=== PATIENT | male | born 1965 | race Hispanic/Latino ===

== ENCOUNTER 2020-12-25 10:27 | Inpatient (IN) | payer OTHER ==
[2020-12-25] MEDS ORDERED: METHYLPREDNISOLONE 125 MG INJ ONE ×2 (11:04→17:18)
[2020-12-25 11:06] LABS: Absolute Lymphocytes (CBC) 1.1 K/uL (0.7-4.9); Basophils % 0.4 % (0-1.3); Hematocrit 43.4 % (39.6-49.0); Lymphocytes % 18.5 % (15.3-44.8); MPV 6.9 fL (7.6-11.3); RBC Red Blood Cell Count 4.82 M/uL (4.33-5.43)
[2020-12-25 11:10] LABS: Protime INR 1.05
--- OUTSIDE RECORDS SUMMARY | 2020-12-25 11:32 | XMS REPORT | Continuity of Care Document ---
:1965 Author Organization [facility] t Address [address] [place] [address] Care Team Providers Name Role Phone Lab, Fam Pob I Attending Clinician Unavailable Provider, Urgent Care Attending Clinician Unavailable Doctor Unassigned, Name Attending Clinician Unavailable Problems This patient has no known problems. Allergies, Adverse Reactions, Alerts This patient has no known allergies or adverse reactions. Medications This patient has no known medications. Procedures This patient has no known procedures. Encounters Start End Encounter Admission Attending Care Care Encounter Source Date/Time Date/Time Type Type Clinicians Facility Department ID 2020-12-17 2020-12-17 Laboratory Lab, [facility] [id number] 08:56:18 09:16:18 Only Fam Pob I Health [id number] [place] [id number] [place] [phone] nal [address] 2020-12-16 2020-12-16 Urgent Provider, [facility] [id number] 09:32:45 09:52:45 Care [facility] [id number] Care [place] [id number] Profess[place] [phone] nal 044 [address] 2020-12-16 2020-12-16 Letter Doctor DIAZ [id number] 00:00:00 00:00:00 (Out) Unassigned, UGO [id number] [place] [facility] [id number] 2020-12-16 2020-12-16 Letter Doctor JOE [id number] 00:00:00 00:00:00 (Out) Unassigned, UGO [id number] [place] [facility] [id number] Results This patient has no known results.
--- NOTE | 2020-12-25 11:55 | RAD REPORT ---
EXAM DESCRIPTION: RAD - Chest Single View - 12/25/2020 11:46 am CLINICAL HISTORY: COVID +;Cough COMPARISON: No remote imaging TECHNIQUE: AP portable chest image was obtained 12/25/2020 11:46 am . FINDINGS: Lung volumes are low. Patchy airspace opacification is present in the lower right lung fie ld. Moderate airspace opacification seen in the mid and lower left lung field. Trachea is midline. He art and vasculature are normal. No measurable pleural effusion and no pneumothorax. No acute bony abn ormality seen. No acute aortic findings suspected. IMPRESSION: Bilateral COVID-19 pneumonia, mild to moderate in degree
[2020-12-25 12:01] LABS: ALT/SGPT 122 U/L (12-78); AST/SGOT 121 U/L (15-37); Albumin 3.1 g/dL (3.4-5.0); Alkaline Phosphatase 94 U/L (45-117); BUN Blood Urea Nitrogen 13 mg/dL (7-18); Bicarbonate 29 mmol/L (21-32); Bilirubin Direct 0.2 mg/dL (0-0.2); Bilirubin Total 0.6 mg/dL (0.2-1.0); Ferritin 986.3 ng/mL (26-388); Glucose Level 107 mg/dL (74-106); Potassium 3.3 mmol/L (3.5-5.1); Sodium Level 137 mmol/L (136-145); Troponin (Emerg Dept Use Only) < 0.02 ng/mL (0.0-0.045)
--- NOTE | 2020-12-25 12:22 | ER ---
Nurse's Notes [facility] Name: Jose D Bellamy Age: 55 yrs Sex: Male : 1965 Arrival Date: 12/25/2020 Time: 10:29 Bed 16 Private MD: Diagnosis: Pneumonia due to SARS-associated coronavirus;Hypoxemia Presentation: 12/25 10:43 Chief complaint: Patient states: COVID+ on 12/17/20. c/o SOB, fatigue, sweaty, sv productive bloody sputum (small amount), diarrhea, decreased appetite, generalized weakness, upper mid back pain since 12/17/20. Coronavirus screen: Client denies travel out of the [place] in the last 14 days. Client presents with at least one sign or symptom that may indicate coronavirus-19. Standard/surgical mask placed on the client. Provider contacted for isolation considerations. Client reports previous positive COVID test result. Ebola Screen: No symptoms or risks identified at this time. Risk Assessment: Do you want to hurt yourself or someone else? Patient reports no desire to harm self or others. Onset of symptoms was December 17, 2020. 10:43 Method Of Arrival: Ambulatory sv 10:43 Acuity: EH 3 sv 11:33 Initial Sepsis Screen: Does the patient meet any 2 criteria? RR > 20 per min. Yes Does tr6 the patient have a suspected source of infection? Yes: Other: covid 19. Triage Assessment: 10:45 General: Appears in no apparent distress. uncomfortable, Behavior is calm, cooperative, sv appropriate for age. Neuro: Level of Consciousness is awake, alert, obeys commands, Oriented to person, place, time, situation, Gait is steady. Respiratory: Respiratory effort is even, Respiratory pattern is tachypnea. 11:33 Pain: Complains of pain in head. tr6 Historical: - Allergies: 10:45 PENICILLINS; sv - PMHx: 10:45 None; sv - PSHx: 10:45 None; sv - Immunization history:: Client reports having NOT received the Covid vaccine. - Social history:: Smoking status: Patient denies any tobacco usage or history of. - Family history:: not pertinent. - Hospitalizations: : No recent hospitalization is reported. Screenin:32 Abuse screen: Denies threats or abuse. Denies injuries from another. Nutritional tr6 screening: No deficits noted. Tuberculosis screening: No symptoms or risk factors identified. Fall Risk None identified. Assessment: 11:08 Respiratory: Respiratory effort is even, unlabored, pt O2 sat 86% on RA. Pt placed on tr6 4L NC. MD Sanchez informed. 11:52 Reassessment: pt increased to 6L NC and placed in prone position. MD Sanchez informed. tr6 General: Appears uncomfortable, Behavior is calm, cooperative, appropriate for age, Reports chills for fever for feeling ill for fatigue for. Pain: Denies pain. Neuro: No deficits noted. Cardiovascular: No deficits noted. Rhythm is regular. Respiratory: Breath sounds are clear Breath sounds are diminished the patient has mild shortness of breath. GI: No deficits noted. : No deficits noted. EENT: No deficits noted. Derm: No deficits noted. Musculoskeletal: No deficits noted. 12:35 Reassessment: MD Hillman at bedside to admit pt. tr6 Vital Signs: 10:43 BP 107 / 85; Pulse 95; Resp 26; Pulse Ox 95% ; Weight 113.4 kg; Height 5 ft. 10 in. sv (177.80 cm); Pain 5/10; 11:18 Pulse Ox 98% on 4 lpm NC; tr6 11:32 Temp 99.7(O); tr6 11:38 Pulse Ox 94% on 4 lpm NC; tr6 12:00 BP 118 / 86; tr6 12:41 Temp 98.9(O); jd3 13:00 BP 114 / 78; Pulse Ox 99% on NC; tr6 10:43 Body Mass Index 35.87 (113.40 kg, 177.80 cm) sv 11:38 pt increased to 6 L NC tr6 ED Course: 10:29 Patient arrived in ED. rg4 10:31 James Yoo, RN is Primary Nurse. jd3 10:32 Markus Sanchez MD is Attending Physician. rn 10:36 Oralia Morton, JOHN is Primary Nurse. tr6 10:45 Triage completed. sv 10:45 Arm band placed on. sv 11:32 Patient has correct armband on for positive identification. Placed in gown. Bed in low tr6 position. Side rails up X2. column precaster on. Pulse ox on. NIBP on. Door closed. Noise minimized. Visitors limited. Lights dimmed. Moved to private room. Warm blanket given. Diet: Patient is NPO. 11:32 No provider procedures requiring assistance completed. Inserted saline lock: 20 gauge tr6 in right antecubital area, using aseptic technique. 11:46 CXR XRAY In Process Unspecified. EDMS 12:20 Usman iHllman DO is Hospitalizing Provider. rn 12:25 CT Chest For PE Angio In Process Unspecified. EDMS Administered Medications: 11:08 Drug: SOLU-Medrol (methylPrednisoLONE) 125 mg Route: IVP; Site: right antecubital; tr6 Outcome: 12:21 Decision to Hospitalize by Provider. rn 13:16 Admitted to tr6 18:05 Patient left the ED. tr6 Signatures: Dispatcher [employer] EDCordelia Jeffrey, RN RN Markus Smith MD MD rn Garcia, Rubi rg4 James Yoo RN RN jOralia Tinajero RN RN tr6
--- NOTE | 2020-12-25 12:22 | EDPHYS ---
Physician Documentation [facility] Name: Jose D Bellamy Age: 55 yrs Sex: Male : 1965 Arrival Date: 12/25/2020 Time: 10:29 Bed 16 Private MD: ED Physician Markus Sanchez HPI: 12/25 11:59 This 55 yrs old Male presents to ER via Ambulatory with complaints of Covid, rn sob. 11:59 The patient has shortness of breath at rest, with light activity. Onset: The rn symptoms/episode began/occurred 8 day(s) ago. Duration: The symptoms are continuous. The patient's shortness of breath is aggravated by coughing, exertion, light activity, supine position, talking, walking. Associated signs and symptoms: Pertinent positives: productive cough, fever, Pertinent negatives: loss of consciousness, vomiting. Severity of symptoms: At their worst the symptoms were moderate in the emergency department the symptoms are unchanged. The patient has not experienced similar symptoms in the past. The patient has been recently seen by a physician:. Reports 1 week of worsening sob and COVID +, no chronic lung issues, still having fever/chills/fatigue. . Historical: - Allergies: 10:45 PENICILLINS; sv - PMHx: 10:45 None; sv - PSHx: 10:45 None; sv - Immunization history:: Client reports having NOT received the Covid vaccine. - Social history:: Smoking status: Patient denies any tobacco usage or history of. - Family history:: not pertinent. - Hospitalizations: : No recent hospitalization is reported. ROS: 11:59 Constitutional: + fever and chills Eyes: Negative for injury, pain, redness, and turn out worker, ENT: Negative for injury, pain, and discharge, Neck: Negative for injury, pain, and swelling, Cardiovascular: Negative for chest pain, palpitations, and edema, Respiratory: + sob and cough Abdomen/GI: Negative for abdominal pain, nausea, vomiting, diarrhea, and constipation, Back: Negative for injury and pain, MS/Extremity: Negative for injury and deformity, Skin: Negative for injury, rash, and discoloration, Neuro: Negative for numbness, tingling, and seizure. Exam: 11:59 Constitutional: This is a well developed, well nourished patient who is awake, alert, rn mild tachypnea Head/Face: Normocephalic, atraumatic. Eyes: Pupils equal round and reactive to light, extra-ocular motions intact. Lids and lashes normal. Conjunctiva and sclera are non-icteric and not injected. Cornea within normal limits. Periorbital areas with no swelling, redness, or edema. ENT: MMM, no stridor Cardiovascular: Tachycardic, regular Respiratory: + mild tachypnea, no retractions Abdomen/GI: Soft, non-tender Skin: Warm, dry MS/ Extremity: Pulses equal, no cyanosis. Neurovascular intact. Full, normal range of motion. Equal circumference. Neuro: Awake and alert, GCS 15, oriented to person, place, time, and situation. Cranial nerves II-XII grossly intact. Motor strength 5/5 in all extremities. Sensory grossly intact. Cerebellar exam normal. Normal gait. Vital Signs: 10:43 BP 107 / 85; Pulse 95; Resp 26; Pulse Ox 95% ; Weight 113.4 kg; Height 5 ft. 10 in. sv (177.80 cm); Pain 5/10; 11:18 Pulse Ox 98% on 4 lpm NC; tr6 11:32 Temp 99.7(O); tr6 11:38 Pulse Ox 94% on 4 lpm NC; tr6 12:00 BP 118 / 86; tr6 12:41 Temp 98.9(O); jd3 13:00 BP 114 / 78; Pulse Ox 99% on NC; tr6 10:43 Body Mass Index 35.87 (113.40 kg, 177.80 cm) sv 11:38 pt increased to 6 L NC tr6 MDM: 10:32 Patient medically screened. rn 11:22 ED course: O2 sat dropped to 86%. rn 12:19 Differential diagnosis: Bronchitis pneumonia, Pneumothorax pulmonary edema, Pulmonary rn Embolism reactive airway disease, Sepsis. Antibiotic administration: Not indicated, the patient has a suspected viral illness. Data reviewed: vital signs, nurses notes, lab test result(s), EKG, radiologic studies, plain films, and as a result, I will admit patient. Counseling: I had a detailed discussion with the patient and/or guardian regarding: the historical points, exam findings, and any diagnostic results supporting the discharge/admit diagnosis, lab results, radiology results, the need for further work-up and treatment in the hospital. Response to treatment: the patient's symptoms have mildly improved after treatment, and as a result, I will admit patient. Admission orders: after a detailed discussion of the patient's condition and case, the admit orders are written by me. ED course: Pt with oxygen requirement, moderate COVID pneumonia, will admit for further care to Dr. Hillman. . 12/25 10:38 Order name: BMP rn 12/25 10:38 Order name: Blood Culture Adult (2) rn 12/25 10:38 Order name: C-Reactive Protein rn 12/25 10:38 Order name: CBC with Diff rn 12/25 10:38 Order name: D-Dimer rn 12/25 10:38 Order name: Ferritin; Complete Time: 12:28 12/25 10:38 Order name: LFT's; Complete Time: 12:28 12/25 10:38 Order name: Lactate; Complete Time: 11:58 12/25 10:38 Order name: PT-INR; Complete Time: 11:58 12/25 10:38 Order name: Procalcitonin; Complete Time: 11:58 rn 12/25 10:38 Order name: Ptt, Activated; Complete Time: 11:58 rn 12/25 10:38 Order name: Troponin (emerg Dept Use Only); Complete Time: 12:28 12/25 10:39 Order name: Basic Metabolic Panel; Complete Time: 12:28 EDTN 12/25 10:39 Order name: Blood Culture EDTN 12/25 10:38 Order name: CXR XRAY; Complete Time: 11:58 rn 12/25 10:38 Order name: EKG; Complete Time: 10:40 rn 12/25 10:38 Order name: Cardiac monitoring; Complete Time: 11:25 rn 12/25 10:38 Order name: Droplet/Contact Precautions; Complete Time: 11: rn 12/25 10:38 Order name: EKG - Nurse/Tech; Complete Time: 11: rn 12/25 10:38 Order name: IV Start; Complete Time: : rn 12/25 10:38 Order name: Labs collected and sent; Complete Time: : rn 12/25 10:38 Order name: O2 Per Protocol; Complete Time: : rn 12/25 10:38 Order name: O2 Sat Monitoring; Complete Time: 11:08 rn 12/25 10:39 Order name: C-Reactive Protein; Complete Time: 12:28 EDMS 12/25 10:39 Order name: CBC with Automated Diff; Complete Time: 11:58 EDMS 12/25 10:40 Order name: D-Dimer; Complete Time: 11:58 EDMS 12/25 11:22 Order name: CT Chest For PE Angio; Complete Time: 13:10 rn 12/25 13:31 Order name: Diet Regular; Complete Time: 13:32 tr6 Administered Medications: 11:08 Drug: SOLU-Medrol (methylPrednisoLONE) 125 mg Route: IVP; Site: right antecubital; tr6 Disposition Summary: 12/25/20 12:21 Hospitalization Ordered Hospitalization Status: Observation rn Provider: Usman Hillman rn Condition: Stable rn Problem: new rn Symptoms: have improved rn Bed/Room Type: Standard rn Location: Telemetry/MedSurg (Inpatient)(12/25/20 16:32) Room Assignment: [facility](12/25/20 16:32) Diagnosis - Pneumonia due to SARS-associated coronavirus rn - Hypoxemia rn Forms: - Medication Reconciliation Form rn - SBAR form rn Signatures: Dispatcher [employer] EDCordelia Jeffrey RN RN Markus Smith MD MD rn Smirch, Shelby, RN RN ss Ramnanan, Tiffany RN RN tr6 Corrections: (The following items were deleted from the chart) 15:38 12:21 Telemetry/MedSurg (observation) rn ss 15:38 12:21 rn 16:32 15:38 [facility] [[email or web address]] ER HOLD ss ss 16:32 15:38 ERHOLD- ss ss
--- NOTE | 2020-12-25 12:49 | RAD REPORT ---
EXAM DESCRIPTION: CT - Chest For Pe Angio - 12/25/2020 12:24 pm CLINICAL HISTORY: DYSPNEA , COVID positive COMPARISON: Chest Single View dated 12/25/2020 TECHNIQUE: Dynamically enhanced 3 mm thick images of the chest were obtained during administration o f approximately 150mL Isovue 370 IV contrast. Coronal and oblique MIP reconstruction images were gene rated and reviewed. Exam utilizes a protocol to evaluate the pulmonary arterial tree. All CT scans are performed using dose optimization technique as appropriate and may include automated exposure control or mA/KV adjustment according to patient size. FINDINGS: No pulmonary emboli are identified. The aorta as imaged shows no acute or suspicious finding. No pericardial thickening or effusion. Peripheral bilateral ground-glass opacification present throughout the lung liu with relative spar ing of the superior right upper lobe. Pattern is typical for a mild to moderate COVID-19 pneumonia. N o pleural effusion or pleural thickening. No mediastinal or hilar suspicious masses. No chest wall masses or abnormal axillary lymphadenopathy. IMPRESSION: No pulmonary emboli identified. Mild to moderate severity bilateral COVID-19 pneumonia.
--- NOTE | 2020-12-25 13:03 | P.HP ---
Certification for Inpatient Patient admitted to: Inpatient With expected LOS: >2 Midnights Patient will require the following post-hospital care: Other (Home oxygen at discharge) Practitioner: I am a practitioner with admitting privileges, knowledge of patient current condition, hospital course, and medical plan of care. Services: Services provided to patient in accordance with Admission requirements found in Title 42 Section 412.3 of the Code of Federal Regulations Patient History Date of Service: 12/25/20 Primary Care Provider: Dr. Garcia Reason for admission: Shortness of breath History of Present Illness: 55-year-old male presented to the emergency room with increasing shortness of breath. Patient reports shortness of breath over the past 8 days. He has been having issues with cough, congestion, arthralgias and fever. His condition has not improved. with similar issues. Patient is not vaccinated with Covid. He came to the ER for further evaluation. In the ER patient was evaluated. Patient was initially with normal room air but dropped to the 80s. Patient was placed on oxygen. White count 6. Hemoglobin 15. Platelet count 312. Sodium 137, potassium 3.3. Blood sugar 107. GFR of 86. Ferritin 986, CRP 80, AST 121, ALT 122. D-dimer at 1500. Lactic acid normal. Troponin normal. Procalcitonin negative. CT scan negative for pulmonary embolism. Mild to moderate Covid pneumonia noted. Patient admitted for further evaluation and treatment. Patient given IV Solu-Medrol in the e mergency room. Home medications list reviewed: Yes - Past Medical/Surgical History Diabetic: No Past Medical History: Patient denies medical history Past Surgical History: Patient denies surgical history Psychosocial/ Personal History: Patient - Family History Family History: Reviewed- Non-Contributory - Social History Smoking Status: Never smoker Alcohol use: Yes CD- Drugs: No Caffeine use: Yes Place of Residence: Home Review of Systems General: Fever, Weakness, Malaise, As per HPI Eyes: Unremarkable ENT: Nose Congestion, As per HPI Respiratory: Cough, Shortness of Breath, SOB with Excertion, As per HPI Cardiovascular: Unremarkable Gastrointestinal: Unremarkable Genitourinary: Unremarkable Musculoskeletal: Unremarkable Integumentary: Unremarkable Neurological: Unremarkable Lymphatics: Unremarkable Physical Examination - Studies Laboratory Data (last 24 hrs) 12/25/20 10:55: PT 12.1, INR 1.05, APTT 29.5 12/25/20 10:55: WBC 6.00, Hgb 15.1, Hct 43.4, Plt Count 312 12/25/20 10:55: Sodium 137, Potassium 3.3 L, BUN 13, Creatinine 0.91, Glucose 107 H, Total Bilirubin 0.6, AST 121 H, ALT 122 H, Alkaline Phosphatase 94 Assessment and Plan - Plan CT scan: FINDINGS: No pulmonary emboli are identified. The aorta as imaged shows no acute or suspicious finding. No pericardial thickening or effusion. Peripheral bilateral ground-glass opacification present throughout the lung liu with relative sparing of the superior right upper lobe. Pattern is typical for a mild to moderate COVID-19 pneumonia. No pleural effusion or pleural thickening. No mediastinal or hilar suspicious masses. No chest wall masses or abnormal axillary lymphadenopathy. IMPRESSION: No pulmonary emboli identified. Mild to moderate severity bilateral COVID-19 pneumonia. Physical Exam: GENERAL: The patient is a well-developed, well-nourished, in no apparent distress. Alert and oriented x3. VITAL SIGNS: Reviewed HEENT: Head is normocephalic and atraumatic. Extraocular muscles are intact. Pupils are equal, round, and reactive to light and accommodation. Nares appeared normal. Mouth is well hydrated and without lesions. Mucous membranes are moist. NECK: Supple. No carotid bruits. No lymphadenopathy or thyromegaly. LUNGS: Clear to auscultation. No crackles or wheezes are heard. HEART: Regular rate and rhythm, no appreciable gallops, rubs, murmurs or extra heart sounds ABDOMEN: Soft, nontender, and nondistended. Positive bowel sounds. No hepatosplenomegaly was noted. EXTREMITIES: Without any cyanosis, clubbing, rash, lesions or peripheral edema. NEUROLOGIC: The patient is oriented to person, place and time. Strength and sensation are grossly intact. Face is symmetric. SKIN: Normal color, turgor and temperature. No ulcerations or rashes noted. Impression: Dyspnea secondary to mild to moderate bilateral Covid pneumonia with hypoxia Elevated liver function suspect fatty liver History of alcohol use Plan: Dyspnea secondary to mild to moderate bilateral Covid pneumonia with hypoxia: Patient will be admitted for further evaluation and treatment. Patient currently on nasal cannula. Continue with nasal cannula to maintain oxygen above 93%. We will continue with IV Solu-Medrol and vitamin supplementation. Patient not a candidate for remdesivir, Actemra and Baricitinib due to elevated liver function. We will continue to monitor liver function. Suspect fatty liver. Continue to monitor and trend CRP and ferritin. Provide supplementation if required. Will provide medication for cough, congestion, fever and pain. DVT prophylaxisLovenox in place. We will continue to monitor daily. Anticipate improvement over the next 72 hours. Elevated liver function suspect fatty liver: Will monitor and trend liver function test. History of alcohol use: Address lifestyle modification education. Code Status: Full Code DVT prophylaxis: Lovenox Advanced Care Planning-30 minutes: Home at discharge. Anticipate home oxygen at discharge. Discharge Plan: Home Plan to discharge in: 72 Hours - Advance Directives Does patient have a Living Will: No Does patient have a Durable POA for Healthcare: No - Code Status/Comfort Care Code Status Assessed: Yes (Full code) Time Spent Managing Pts Care (In Minutes): 55
[2020-12-25 16:11] VITALS: BMI 35.9
[2020-12-25] MEDS ORDERED: IPRATROPIUM BROM 0.5MG/2.5ML NEB PRN (16:31)
[2020-12-25] MEDS ORDERED: ACETAMINOPHEN 500 MG TAB PO PRN (16:31)
[2020-12-25] MEDS: ENSURE HIGH PROTEIN 237 ML CAN PO SCH ×2 (16:31→21:00)
[2020-12-25] MEDS ORDERED: IBUPROFEN 400 MG TAB PO PRN (16:31)
[2020-12-25] MEDS ORDERED: ALBUTEROL 2.5 MG/3 ML NEB SOL NEB PRN (16:31)
[2020-12-25] MEDS: METHYLPREDNISOLONE 40 MG INJ IV SCH (17:00)
[2020-12-25] MEDS: ENOXAPARIN 40 MG/0.4 ML SQ SCH (17:00)
[2020-12-25] MEDS ORDERED: ENOXAPARIN 40 MG/0.4 ML SQ ONE (17:17)
[2020-12-25] MEDS ORDERED: ASCORBIC ACID 500 MG TABLET ONE (17:17)
[2020-12-25] MEDS ORDERED: FAMOTIDINE 20 MG TAB ONE (17:18)
[2020-12-25] MEDS ORDERED: BENZONATATE 100 MG CAP PO ONE (17:19)
[2020-12-25] MEDS: BENZONATATE 100 MG CAP PO PRN (17:26)
[2020-12-25] MEDS: FAMOTIDINE 20 MG TAB PO SCH (17:26)
[2020-12-25] MEDS: ASCORBIC ACID 500 MG TABLET PO SCH ×2 (17:26→21:45)
[2020-12-25] MEDS ORDERED: POTASSIUM CL SA 10 MEQ TAB PO ONE (21:00)
[2020-12-25] MEDS: THIAMINE HCL 100 MG TABLET PO SCH (21:44)
[2020-12-26] MEDS: METHYLPREDNISOLONE 40 MG INJ IV SCH ×3 (00:02→16:01)
[2020-12-26] MEDS: BENZONATATE 100 MG CAP PO PRN ×4 (00:03→19:59)
[2020-12-26 04:32] LABS: Absolute Lymphocytes (CBC) 0.6 K/uL (0.7-4.9); Basophils % 0.2 % (0-1.3); Hematocrit 40.1 % (39.6-49.0); Lymphocytes % 11.3 % (15.3-44.8); MPV 7.3 fL (7.6-11.3); RBC Red Blood Cell Count 4.41 M/uL (4.33-5.43)
[2020-12-26 04:51] LABS: ALT/SGPT 119 U/L (12-78); AST/SGOT 90 U/L (15-37); Albumin 2.8 g/dL (3.4-5.0); Alkaline Phosphatase 82 U/L (45-117); BUN Blood Urea Nitrogen 20 mg/dL (7-18); Bicarbonate 29 mmol/L (21-32); Bilirubin Total 0.4 mg/dL (0.2-1.0); Glucose Level 180 mg/dL (74-106); Magnesium 2.7 mg/dL (1.8-2.4); Potassium 4.1 mmol/L (3.5-5.1); Protein, Total 7.5 g/dL (6.4-8.2); Sodium Level 138 mmol/L (136-145)
--- NOTE | 2020-12-26 06:13 | P.PN ---
Subjective Date of Service: 12/26/20 Primary Care Provider: Dr. Garcia Chief Complaint: Shortness of breath Subjective: Improving, Doing well (He is on 3 L/min. Less cough. He is feeling better.) Physical Examination - Vital Signs Temperature: 96.5 F Blood Pressure: 130/83 Pulse: 77 Respirations: 18 Pulse Ox (%): 91 - Studies Laboratory Data (last 24 hrs) 12/25/20 10:55: PT 12.1, INR 1.05, APTT 29.5 12/25/20 10:55: WBC 6.00, Hgb 15.1, Hct 43.4, Plt Count 312 12/25/20 10:55: Sodium 137, Potassium 3.3 L, BUN 13, Creatinine 0.91, Glucose 107 H, Total Bilirubin 0.6, AST 121 H, ALT 122 H, Alkaline Phosphatase 94 Assessment & Plan Discharge Plan: Home Plan to discharge in: 24 Hours Physician Review Additional Text: CT scan: FINDINGS: No pulmonary emboli are identified. The aorta as imaged shows no acute or suspicious finding. No pericardial thickening or effusion. Peripheral bilateral ground-glass opacification present throughout the lung liu with relative sparing of the superior right upper lobe. Pattern is typical for a mild to moderate COVID-19 pneumonia. No pleural effusion or pleural thickening. No mediastinal or hilar suspicious masses. No chest wall masses or abnormal axillary lymphadenopathy. IMPRESSION: No pulmonary emboli identified. Mild to moderate severity bilateral COVID-19 pneumonia. Physical Exam: GENERAL: The patient is a well-developed, well-nourished, in no apparent distress. Alert and oriented x3. VITAL SIGNS: Reviewed HEENT: Head is normocephalic and atraumatic. Extraocular muscles are intact. Pupils are equal, round, and reactive to light and accommodation. Nares appeared normal. Mouth is well hydrated and without lesions. Mucous membranes are moist. NECK: Supple. No carotid bruits. No lymphadenopathy or thyromegaly. LUNGS: Air movement better. On 3 l/min. HEART: Regular rate and rhythm, no appreciable gallops, rubs, murmurs or extra heart sounds ABDOMEN: Soft, nontender, and nondistended. Positive bowel sounds. No hepatosplenomegaly was noted. EXTREMITIES: Without any cyanosis, clubbing, rash, lesions or peripheral edema. NEUROLOGIC: The patient is oriented to person, place and time. Strength and sensation are grossly intact. Face is symmetric. SKIN: Normal color, turgor and temperature. No ulcerations or rashes noted. Impression: Dyspnea secondary to mild to moderate bilateral Covid pneumonia with hypoxia Elevated liver function suspect fatty liver History of alcohol use Plan: Dyspnea secondary to mild to moderate bilateral Covid pneumonia with hypoxia: Patient currently on 3 l/m nasal cannula. Continue with nasal cannula to maintain oxygen above 93%. Will continue with IV Solu-Medrol and vitamin supplementation. Patient not a candidate for remdesivir, Actemra and Baricitinib due to elevated liver function. Will continue to monitor liver function. Suspect fatty liver. Continue to monitor and trend CRP and ferritin. It shows improvement. Will provide medication for cough, congestion, fever and pain. DVT prophylaxisLovenox in place. Will continue to monitor daily. Anticipate improvement over the next 24 hours with likely discharge tomorrow. Elevated liver function suspect fatty liver: Will monitor and trend liver function test. History of alcohol use: Address lifestyle modification education. Code Status: Full Code DVT prophylaxis: Lovenox Advanced Care Planning-30 minutes: Home at discharge. Anticipate home oxygen at discharge. Time Spent Managing Pts Care (In Minutes): 55
[2020-12-26 06:37] LABS: C-Reactive Protein 81.2 mg/L (<3.00); Ferritin 792.6 ng/mL (26-388)
--- NOTE | 2020-12-26 07:45 | EKG ---
Test Date: 2020-12-25 Test Time: 11:20:03 Health Assessment And Treatment Teacher: GUY MEASUREMENT RESULTS: Intervals: Rate: 88 TN: 178 QRSD: 118 QT: 368 QTc: 445 [place]: P: 47 TN: 178 QRS: -70 T: 37 INTERPRETIVE STATEMENTS: Normal sinus rhythm Right bundle branch block Left anterior fascicular block Bifascicular block Abnormal ECG No previous ECG available for comparison Electronically Signed On 12-26-20 07:42:50 CDT by Farshad Avila
[2020-12-26] MEDS: ASCORBIC ACID 500 MG TABLET PO SCH ×3 (08:51→19:59)
[2020-12-26] MEDS: FAMOTIDINE 20 MG TAB PO SCH ×2 (08:51→19:58)
[2020-12-26] MEDS: ENSURE HIGH PROTEIN 237 ML CAN PO SCH ×3 (08:51→19:58)
[2020-12-26] MEDS: ZINC SULFATE 220 MG CAP PO SCH (08:51)
[2020-12-26] MEDS: ENOXAPARIN 40 MG/0.4 ML SQ SCH (08:51)
[2020-12-26] MEDS: VITAMIN D 1000 UNIT TAB PO SCH (08:51)
[2020-12-26] MEDS: THIAMINE HCL 100 MG TABLET PO SCH ×2 (08:52→19:59)
[2020-12-26 09:40] LABS: Urine Appearance CLEAR (Clear); Urine Bilirubin NEGATIVE (Negative); Urine Blood NEGATIVE (Negative); Urine Color DK YELLOW (Yellow); Urine Glucose 1+ (Negative); Urine Protein 1+ (Negative); Urine Specific Gravity >=1.030 (1.005-1.030)
[2020-12-26 10:12] LABS: Urine Amorphous Sediment 1+ /HPF (NONE SEEN); Urine Bacteria NONE SEEN /HPF (NONE SEEN); Urine Microscopic Reflex ORDER UMIC; Urine Mucus LIGHT /HPF (NONE SEEN); Urine RBC <5 /HPF (NONE SEEN)
[2020-12-26] MEDS: ONDANSETRON 4 MG/2 ML VIAL IV PRN (11:04)
[2020-12-26 16:00] VITALS: O2SAT 92
[2020-12-27] MEDS: ONDANSETRON 4 MG/2 ML VIAL IV PRN (00:10)
[2020-12-27] MEDS: METHYLPREDNISOLONE 40 MG INJ IV SCH ×2 (00:10→08:09)
--- NOTE | 2020-12-27 06:08 | P.DS ---
Admission Date: 12/25/20 Discharge Date: 12/27/20 Primary Care Provider: Dr. Garcia Disposition: ROUTINE DISCHARGE Discharge Condition: GOOD Reason for Admission: Shortness of breath Consultations: none Procedures: CT scan: FINDINGS: No pulmonary emboli are identified. The aorta as imaged shows no acute or suspicious finding. No pericardial t hickening or effusion. Peripheral bilateral ground-glass opacification present throughout the lung liu with relative sparing of the superior right upper lobe. Pattern is typical for a mild to moderate COVID-19 pneumonia. No pleural effusion or pleural thickening. No mediastinal or hilar suspicious masses. No chest wall masses or abnormal axillary lymphadenopathy. IMPRESSION: No pulmonary emboli identified. Mild to moderate severity bilateral COVID-19 pneumonia. Follow up CXR: COMPARISON: December 25 TECHNIQUE: AP portable chest image was obtained 12/27/2020 7:47 am . FINDINGS: Low lung volume noted. Mild to moderate severity airspace opacification seen in the mid and lower left lung field. Mild airspace disease noted in the right lung base. Pattern is stable from prior imaging consistent with mild to moderate COVID-19 pneumonia. Heart size is upper normal. Vasculature within normal limits. No measurable pleural effusion and no pne umothorax. No acute bony abnormality seen. No acute aortic findings suspected. IMPRESSION: Mild to moderate COVID-19 pneumonia similar to comparison. Medical Problem List: Dyspnea secondary to mild to moderate bilateral Covid pneumonia with hypoxia Elevated liver function suspect fatty liver History of alcohol use GERD Obesity, BMI 35.9 Brief History of Present Illness: 55-year-old male presented to the emergency room with increasing shortness of breath. Patient reports shortness of breath over the past 8 days. He has been having issues with cough, congestion, arthralgias and fever. His condition has not improved. with similar issues. Patient is not vaccinated with Covid. He came to the ER for further evaluation. In the ER patient was evaluated. Patient was initially with normal room air but dropped to the 80s. Patient was placed on oxygen. White count 6. Hemoglobin 15. Platelet count 312. Sodium 137, potassium 3.3. Blood sugar 107. GFR of 86. Ferritin 986, CRP 80, AST 121, ALT 122. D-dimer at 1500. Lactic acid normal. Troponin normal. Procalcitonin negative. CT scan negative for pulmonary embolism. Mild to moderate Covid pneumonia noted. Patient admitted for further evaluation and treatment. Patient given IV Solu-Medrol in the emergency room. Hospital Course: Patient presented with dyspnea to the ER. Patient found to have mild to moderate bilateral Covid pneumonia with hypoxia. Patient was admitted for treatment. Patient is unvaccinated for Covid. Patient received IV steroids and supplementation. Patient was not a candidate for remdesivir, Actemra and Baricitinib due to elevated liver function. Patient likely with underlying fatty liver. Patient improved during the course of his stay. At discharge patient without significant shortness of breath. Patient able to do his daily activity. Patient has significantly improved. Patient still requiring oxygen at discharge. Home oxygen has been arranged. At discharge the patient will continue with home oxygen to maintain sats above 93%. Patient currently on 2 L. At discharge patient will continue with prednisone 20 mg 1 pill twice daily for 7 days then 1 pill once daily for 7 days. The patient will also be provided Tessalon 100 mg 3 times a day as needed for cough and albuterol 2 puffs 3 times a day as needed for shortness of breath. The patient will continue with vitamin supplementation including zinc 220 mg daily, thiamine 100 mg daily, vitamin C 500 mg 3 times a day, and vitamin D 2000 units once daily. The patient will continue with aspirin 81 mg daily. At discharge patient will need to follow-up with his PCP within 1 week to follow-up his hospitalization. At discharge patient will continue to follow CDC guidelines on COVID-19 isolation protocol. Patient will remain isolated for at least 10 days. Patient will continue with incentive parameter at home. Recommend to continue proning and slowly increase activity. His PCP will further evaluate patient and consider when the patient can return back to work. Recommend COVID-19 vaccine in the future after this has resolved. Patient with elevated liver function. Likely with underlying fatty liver. Patient with history of alcohol use. Recommend to eliminate alcohol. Recommend to recheck labCMP in 1 to 2 weeks to monitor his progress. This can be done with the help of his PCP. Other consideration is to obtain liver ultrasound to further evaluate. If with fatty liver recommend GI evaluation to further address. Education on fatty liver will be provided. Patient with underlying GERD. At discharge patient may continue with Pepcid 20 mg 1 pill twice daily. GERD diet will be provided. Recommend GI evaluation as an outpatient in the near future to further address. Vital Signs/Physical Exam: Temp Pulse Resp BP Pulse Ox 96.9 F 74 18 136/80 96 12/27/20 04:00 12/27/20 04:00 12/27/20 04:00 12/27/20 04:00 12/27/20 04:00 General: Alert, In no apparent distress, Oriented x3, Cooperative HEENT: Atraumatic Neck: Supple Respiratory: Other (Better air movement bilateral. Currently on 2 L per nasal cannula.) Cardiovascular: Normal pulses, Regular rate/rhythm Gastrointestinal: Normal bowel sounds, No tenderness, No masses, No rebound, No guarding Musculoskeletal: No erythema, No tenderness, No warmth Integumentary: No tenderness/swelling, No erythema, No warmth, No cyanosis Neurological: Normal speech, Normal strength at 5/5 x4 extr, Normal tone, Normal affect Laboratory Data at Discharge: WBC 5.30 K/uL (4.3-10.9) 12/26/20 03:39 Hgb 13.8 g/dL (13.6-17.9) 12/26/20 03:39 Hct 40.1 % (39.6-49.0) 12/26/20 03:39 Plt Count 313 K/uL (152-406) 12/26/20 03:39 PT 12.1 SECONDS (9.5-12.5) 12/25/20 10:55 INR 1.05 12/25/20 10:55 APTT 29.5 SECONDS (24.3-36.9) 12/25/20 10:55 Sodium 138 mmol/L (136-145) 12/26/20 03:39 Potassium 4.1 mmol/L (3.5-5.1) 12/26/20 03:39 BUN 20 mg/dL (7-18) H 12/26/20 03:39 Creatinine 0.82 mg/dL (0.55-1.3) 12/26/20 03:39 Glucose 180 mg/dL (74-106) H 12/26/20 03:39 Magnesium 2.7 mg/dL (1.8-2.4) H 12/26/20 03:39 Total Bilirubin 0.4 mg/dL (0.2-1.0) 12/26/20 03:39 AST 90 U/L (15-37) H 12/26/20 03:39 ALT 119 U/L (12-78) H 12/26/20 03:39 Alkaline Phosphatase 82 U/L (45-117) 12/26/20 03:39 Home Medications: Albuterol Inhaler [Ventolin Inhaler*] 2 puff IH TID PRN #1 hfa.aer.ad 12/27/20 Ascorbic Acid [Vitamin C*] 500 mg PO TID #90 tablet 12/27/20 Aspirin [Aspirin EC 81 MG] 81 mg PO DAILY #30 tablet. 12/27/20 Benzonatate [Tessalon Perle*] 100 mg PO TID PRN #10 cap 12/27/20 Cholecalciferol (Vitamin D3) [Vitamin D 1000 Iu Tab*] 2,000 unit PO DAILY #60 tab 12/27/20 Famotidine [Pepcid] 20 mg PO BID #60 12/27/20 Thiamine HCl [Vitamin B-1*] 100 mg PO DAILY #30 tablet 12/27/20 Zinc Sulfate [Zinc Sulfate*] 220 mg PO DAILY #30 cap 12/27/20 predniSONE [Prednisone*] 20 mg PO SEECOM #21 tab 12/27/20 New Medications: Aspirin [Aspirin EC 81 MG] 81 mg PO DAILY #30 tablet. Famotidine [Pepcid] 20 mg PO BID #60 predniSONE [Prednisone*] 20 mg PO SEECOM #21 tab Benzonatate [Tessalon Perle*] 100 mg PO TID PRN #10 cap PRN Reason: Cough Albuterol Inhaler [Ventolin Inhaler*] 2 puff IH TID PRN #1 hfa.aer.ad PRN Reason: Shortness Of Breath Thiamine HCl [Vitamin B-1*] 100 mg PO DAILY #30 tablet Ascorbic Acid [Vitamin C*] 500 mg PO TID #90 tablet Cholecalciferol (Vitamin D3) [Vitamin D 1000 Iu Tab*] 2,000 unit PO DAILY #60 tab Zinc Sulfate [Zinc Sulfate*] 220 mg PO DAILY #30 cap Physician Discharge Instructions: Patient presented with dyspnea to the ER. Patient found to have mild to moderate bilateral Covid pneumonia with hypoxia. Patient was admitted for treatment. Patient is unvaccinated for Covid. Patient received IV steroids and supplementation. Patient was not a candidate for remdesivir, Actemra and Baricitinib due to elevated liver function. Patient likely with underlying fatty liver. Patient improved during the course of his stay. At discharge patient without significant shortness of breath. Patient able to do his daily activity. Patient has significantly improved. Patient still requiring oxygen at discharge. Home oxygen has been arranged. At discharge the patient will continue with home oxygen to maintain sats above 93%. Patient currently on 2 L. At discharge patient will continue with prednisone 20 mg 1 pill twice daily for 7 days then 1 pill once daily for 7 days. The patient will also be provided Tessalon 100 mg 3 times a day as needed for cough and albuterol 2 puffs 3 times a day as needed for shortness of breath. The patient will continue with vitamin supplementation including zinc 220 mg daily, thiamine 100 mg daily, vitamin C 500 mg 3 times a day, and vitamin D 2000 units once daily. The patient will continue with aspirin 81 mg daily. At discharge patient will need to follow-up with his PCP within 1 week to follow-up his hospitalization. At discharge patient will continue to follow CDC guidelines on COVID-19 isolation protocol. Patient will remain isolated for at least 10 days. Patient will continue with incentive parameter at home. Recommend to continue proning and slowly increase activity. His PCP will further evaluate patient and consider when the patient can return back to work. Recommend COVID-19 vaccine in the future after this has resolved. Patient with elevated liver function. Likely with underlying fatty liver. Patient with history of alcohol use. Recommend to eliminate alcohol. Recommend to recheck labCMP in 1 to 2 weeks to monitor his progress. This can be done with the help of his PCP. Other consideration is to obtain liver ultrasound to further evaluate. If with fatty liver recommend GI evaluation to further address. Education on fatty liver will be provided. Patient with underlying GERD. At discharge patient may continue with Pepcid 20 mg 1 pill twice daily. GERD diet will be provided. Recommend GI evaluation as an outpatient in the near future to further address. Diet: Regular Activity: Ad yuriy Followup: NONE,NONE [Primary Care Provider] - Time spent managing pt's care (in minutes): 55
[2020-12-27 06:29] LABS: Absolute Lymphocytes (CBC) 0.9 K/uL (0.7-4.9); Basophils % 0.1 % (0-1.3); Hematocrit 38.9 % (39.6-49.0); MPV 6.8 fL (7.6-11.3); RBC Red Blood Cell Count 4.32 M/uL (4.33-5.43)
[2020-12-27 06:50] LABS: ALT/SGPT 120 U/L (12-78); AST/SGOT 69 U/L (15-37); Albumin 2.9 g/dL (3.4-5.0); Alkaline Phosphatase 75 U/L (45-117); BUN Blood Urea Nitrogen 28 mg/dL (7-18); Bicarbonate 30 mmol/L (21-32); Bilirubin Total 0.4 mg/dL (0.2-1.0); Ferritin 623.4 ng/mL (26-388); Glucose Level 165 mg/dL (74-106); Magnesium 2.6 mg/dL (1.8-2.4); Potassium 4.1 mmol/L (3.5-5.1); Protein, Total 7.1 g/dL (6.4-8.2); Sodium Level 138 mmol/L (136-145)
[2020-12-27 07:25] LABS: Blood Morphology Comment NOT SEEN (NOT SEEN); Platelet Estimate ADEQ; White Blood Cell Scan OK (OK)
[2020-12-27] MEDS: ZINC SULFATE 220 MG CAP PO SCH (08:09)
[2020-12-27] MEDS: ASCORBIC ACID 500 MG TABLET PO SCH ×2 (08:09→13:16)
[2020-12-27] MEDS: VITAMIN D 1000 UNIT TAB PO SCH (08:09)
[2020-12-27] MEDS: THIAMINE HCL 100 MG TABLET PO SCH (08:09)
[2020-12-27] MEDS: ENOXAPARIN 40 MG/0.4 ML SQ SCH (08:09)
[2020-12-27] MEDS: ENSURE HIGH PROTEIN 237 ML CAN PO SCH ×2 (08:10→14:00)
--- NOTE | 2020-12-27 08:47 | RAD REPORT ---
EXAM DESCRIPTION: RAD - Chest Single View - 12/27/2020 7:47 am CLINICAL HISTORY: follow up COVID, pneumonia COMPARISON: December 25 TECHNIQUE: AP portable chest image was obtained 12/27/2020 7:47 am . FINDINGS: Low lung volume noted. Mild to moderate severity airspace opacification seen in the mid an d lower left lung field. Mild airspace disease noted in the right lung base. Pattern is stable from p rior imaging consistent with mild to moderate COVID-19 pneumonia. Heart size is upper normal. Vascula ture within normal limits. No measurable pleural effusion and no pneumothorax. No acute bony abnormal ity seen. No acute aortic findings suspected. IMPRESSION: Mild to moderate COVID-19 pneumonia similar to comparison.
[2020-12-27 11:29] VITALS: BP 133/89; TEMP 97.2
[2020-12-28] MEDS ORDERED: PANTOPRAZOLE 40MG TABLET PO SCH (06:30)
== END 2020-12-27 15:47 | disposition home or self-care (01) | DRG 177 ==
LOC: ER 10:27 → ERHOLD 12:53 → 4TH 18:12
PROVIDERS: ADMIT Family Medicine; ATTEND Family Medicine
DX: U07.1 COVID-19 (principal); J12.82 Pneumonia due to coronavirus disease 2019; R09.02 Hypoxemia; R79.89 Other specified abnormal findings of blood chemistry; K76.0 Fatty (change of) liver, not elsewhere classified; K21.9 Gastro-esophageal reflux disease without esophagitis; F10.21 Alcohol dependence, in remission; E66.9 Obesity, unspecified; Z68.35 Body mass index [BMI] 35.0-35.9, adult; Z88.0 Allergy status to penicillin
CPT/HCPCS: 36415; 71045; 71275; 80048; 80053; 80076; 81003; 81015; 82728; 83605; 83735; 84145; 84484; 85025; 85379; 85610; 85730; 86140; 87040; 93005; 94010; 96374; 99285; J1650; J2405; J2920; J2930; Q9967

== ENCOUNTER 2025-01-23 06:45 | Emergency (ER) | payer OTHER ==
--- OUTSIDE RECORDS SUMMARY | 2025-01-23 06:48 | XMS REPORT | Continuity of Care Document ---
Author Name Unknown Address [address] [place] [address] [facility] Address [address] [place] [address] Care Team Providers Care Dial Mounter Name Role Phone Abdelrahman Mendoza Attending Clinician Unavailable Lab, [facility] Pob I Attending Clinician Unavailab Christy Lynn Attending Clinician [phone] CHRISTY MCRAE Attending Clinician Unavailable Provider, [facility] Attending Clinician Un available Ricco Wilson Attending Clinician [phone] RICCO DOYLE Attending Clinician Unavailable Doctor Unassigned, [place] Attending Clinician U RILEY Olivares Attending Clinician Unavailable Payers Payer Name Policy Type Policy Number Effective Date Expirati on Date Source [facility] [id number] 2017 00:00:00 Problems Condition Name Condition Details Condition Category Status Onset Date Resolution Date Last Treatment Date Treating Clinician Comments Source No known active problems No known active problems Disease [facility] Allergies, Adverse Reactions, Alerts Allergy Name Allergy Type Status Severity Reaction(s) Onset Date Inactive Date Treating Clinician Comments Source Penicill ins Propensi ty to adverse reaction s Active Rash 11-19 00:00: 00 [facility] PENICILL INS Drug Class Active Rash 11-19 00:00: 00 [facility] Social History Social Habit Start Date Stop Date Quantity Comments Source Exposure to SARS-CoV-2 (event) Not sure [facility] Tobacco use and exposure 2020-12-16 00:00:00 2020-12-16 00:00:00 Never used [facility] Alcohol intake 2020-12-16 00:00:00 2020-12-16 00:00:00 Current drinker of alcohol (finding) [facility] Alcohol Comment 2018-11-19 00:00:00 2018-11-19 00:00:00 socially [facility] Sex Assigned At 1965 00:00:00 1965 00:00:00 [facility] Smoking Status Start Date Stop Date Source Never smoker [facility] Medications Ordered Medication Name Filled Medication Name Start Date Stop Date Current Medication? Ordering Clinician Indication Dosage Frequency Signature (SIG) Comments Components Source bromphenira mine-pseudo ephedrine-D M (BROMFED DM) 2-30-10 mg/5 mL syrup 12-16 00:00: 00 12-27 04:59 :00 No [id number] 5mL Take 5 mL by mouth 4 (four) times daily as needed for Congestion /Allergies or Cough for up to 10 days. [facility] azithromyci n (ZITHROMAX Z-KAMINI) 250 mg tablet 12-16 00:00: 00 12-22 04:59 :00 No [id number] 250mg Take 1 tablet by mouth daily for 5 days. Take 500 mg day 1, then 250 mg days 2 to 5. [facility] hydrOXYzine 25 mg tablet 12-02 00:00: 00 12-16 00:00 :00 No [id number] 25mg Take 1 tablet by mouth every 6 (six) hours as needed for Itching. [facility] methylPREDN ISolone 4 mg tablets 11-19 00:00: 00 Yes [id number] Take by mouth SEE-INSTRU CTIONS. follow package directions [facility] Vital Signs Vital Name Observation Time Observation Value Comments S dorothy Systolic blood pressure 2020-12-16 14:40:00 134 mm[Hg] [facility] Diastolic blood pressure 2020-12-16 14:40:00 85 mm[Hg] [facility] Heart rate 2020-12-16 14:40:00 88 /min Unive [facility] Body temperature 2020-12-16 14:40:00 37.22 Barbara [facility] Respiratory rate 2020-12-16 14:40:00 18 /min [facility] Body height 2020-12-16 14:40:[address] [facility] Body weight 2020-12-16 14:40:[address] [facility] BMI 2020-12-16 14:40:00 37.31 kg/m2 [facility] Oxygen saturation in Arterial blood by Pulse oximetry 2020-12-16 14:40:00 96 /min [facility] Systolic blood pressure 2020-12-16 14:40:00 134 mm[Hg] [facility] Diastolic blood pressure 2020-12-16 14:40:00 85 mm[Hg] [facility] Heart rate 2020-12-16 14:40:00 88 /min [facility] Body temperature 2020-12-16 14:40:00 37.22 Barbara [facility] Respiratory rate 2020-12-16 14:40:00 18 /min [facility] Body height 2020-12-16 14:40:[address] [facility] Body weight 2020-12-16 14:40:[address] [facility] BMI 2020-12-16 14:40:00 37.31 kg/m2 [facility] Oxygen saturation in Arterial blood by Pulse oximetry 2020-12-16 14:40:00 96 /min [facility] Encounters Start Date/Time End Date/Time Encounter Type Admission Type Attending Clinicians Care Facility Care Department Encounter ID Source 2022-02-11 10:54:01 [facility] [id number] [facility] 2021-07-15 13:29:01 [facility] [id number] [facility] 2021-02-12 14:30:00 2021-02-12 14:30:00 Outpatient [facility] [id number] [facility] 2021-02-11 15:00:00 2021-02-11 15:00:00 Outpatient [facility] [id number] [facility] 2021-02-11 14:30:00 2021-02-11 14:30:00 Outpatient [facility] [id number] [facility] 2020-12-17 08:56:18 2020-12-17 09:16:18 Laboratory Only Lab, [facility] Fam Pob I [facility] [address] .114 [id number] 2020-12-17 08:56:18 2020-12-17 09:16:18 Laboratory Only Lab, [facility] Fam Pob I Christy Mcrae [facility] [address] .114 [id number] [facility] 2020-12-17 09:00:00 2020-12-17 09:00:00 Outpatient CHRISTY WRIGHT [facility] [id number] [facility] 2020-12-16 09:32:45 2020-12-16 09:52:45 Urgent Care Provider, [facility] [address] .114 [id number] 2020-12-16 09:32:45 2020-12-16 09:52:45 Urgent Care Provider, [facility] Ricco Doyle [facility] [address] .114 [id number] [facility] 2020-12-16 09:20:00 2020-12-16 09:20:00 Outpatient RICCO COLLINS [facility] [id number] [facility] 2020-12-16 00:00:00 2020-12-16 00:00:00 Letter (Out) Doctor Unassigned, [place] [facility] [id number] [facility] 2020-12-16 00:00:00 2020-12-16 00:00:00 Letter (Out) Doctor Unassigned, [place] [facility] [id number] [facility] 2020-12-16 00:00:00 2020-12-16 00:00:00 Letter (Out) Doctor Unassigned, [place] [facility] [id number] 2020-12-16 00:00:00 2020-12-16 00:00:00 Letter (Out) Doctor Unassigned, [place] [facility] [id number] 2018-12-02 11:45:00 2018-12-02 12:25:07 Outpatient RILEY WILSON [facility] [id number] [facility]
[2025-01-23] MEDS ORDERED: KETOROLAC 30 MG/ML INJ ONE (07:12)
[2025-01-23] MEDS ORDERED: NA CHLORIDE 0.9% 1,000 ML ONE (07:12)
[2025-01-23 07:27] LABS: Absolute Lymphocytes (CBC) 1.5 K/uL (0.7-4.9); Hematocrit 43.7 % (39.6-49.0); Hemoglobin 15.4 g/dL (13.6-17.9); MCH 32.2 pg (27.0-35.0); MCHC 35.3 g/dL (32.0-36.0); MCV 91.4 fL (80-100); MPV 7.6 fL (7.6-11.3); Nucleated RBC Absolute Count 0.0 (0-0); Nucleated Red Blood Cells % 0.0 % (0-0); RBC Red Blood Cell Count 4.78 M/uL (4.33-5.43); White Blood Count 9.50 thou/uL (4.3-10.9)
[2025-01-23 07:43] LABS: ALT/SGPT 42.0 U/L (16-61); AST/SGOT 29.0 U/L (15-37); Albumin 3.9 g/dL (3.4-5.0); Albumin/Globulin Ratio 1.1 (1.1-1.8); Alkaline Phosphatase 75.0 U/L (45-117); Anion Gap 11.0 mEq/L (5.0-15.0); BUN Blood Urea Nitrogen 27.0 mg/dL (7-18); Globulin 3.4 g/dL (2.3-3.5); Glucose Level 150.0 mg/dL (74-106); Lipase 26.0 U/L (13-75); Potassium 4.0 mEq/L (3.5-5.1)
[2025-01-23] MEDS ORDERED: HYDROMORPHONE HCL 1 MG/ML INJ ONE ×2 (08:09→08:45)
[2025-01-23] MEDS ORDERED: ONDANSETRON 4 MG/2 ML VIAL ONE (08:09)
--- NOTE | 2025-01-23 08:19 | RAD REPORT ---
EXAMINATION: CT Abdomen Pelvis W Contrast CLINICAL INDICATION: Male, 59 years old. RLQ + R flank pain TECHNIQUE: CT abdomen and pelvis was performed, after the administration of IV contrast, as per [facility] protocol. Axial, sagittal and coronal reconstructions were obtained. One or more of the following dose reduction techniques were used: Automated exposure control, adjustment of the mA and k V according to patient size, and iterative reconstruction. Unless otherwise specified, incidental findings do not require dedicated imaging follow-up. COMPARISON: No prior exam. FINDINGS: LOWER CHEST: The visualized lung bases are clear. LIVER: Normal in size and contour. No focal lesion. BILIARY SYSTEM: No suspicious abnormalities. SPLEEN: Normal size. No focal lesion. PANCREAS: No mass, ductal dilation, or kalyan-pancreatic fluid. ADRENALS: Normal; no mass. KIDNEYS: Normal size and contour. 3 mm right vesicoureteral junction calculus. Mild hydroureteronephr osis with mild right perinephric fat stranding. URINARY BLADDER: Suboptimally distended limiting evaluation. GASTROINTESTINAL TRACT: Small sliding hiatal hernia. No evidence of free air, significant intra-abdom inal free fluid, bowel obstruction or abscess. Distal colonic diverticulosis diverticulitis. APPENDIX: Normal appendix. LYMPH NODES: No lymphadenopathy. MUSCULOSKELETAL: No acute or suspicious osseous abnormality. ADDITIONAL FINDINGS: None. IMPRESSION: Right mild hydroureteronephrosis, with a 3 mm right vesicoureteral junction obstructing calculus. Other incidental findings including distal colonic diverticulosis. THIS REPORT CONTAINS FINDINGS THAT MAY BE CRITICAL TO PATIENT CARE. The findings were verbally commun icated via telephone to Roscoe Garcia on 01/23/2025 8:15 AM.
[2025-01-23 09:04] LABS: Sqamous Epithelial None Seen /HPF (None Seen); Urine Culture Reflex Order NOT NEEDED; Urine Microscopic Reflex YN ORDER UMIC
--- NOTE | 2025-01-23 09:09 | EDPHYS ---
Physician Documentation [facility] Name: Radha Bellamy Age: 59 yrs Sex: Male : 1965 Arrival Date: 01/23/2025 Time: 06:45 Bed 19 Private MD: Jose [facility] ED Physician Roscoe Garcia HPI: 01/23 07:27 This 59 yrs old Male presents to ER via Ambulatory with complaints of Flank sp3 Pain, Low Back Pain, Nausea/Vomiting. 07:27 59-year-old male with no past medical history presents with right flank pain and right sp3 lower quadrant abdominal pain starting at 3 AM suddenly coupled with nonbilious, nonbloody emesis x 2-3 episodes. He denies any other symptoms including fever, neck pain, chest pain, shortness of breath, left-sided pain, dysuria, gross visualized hematuria, urinary frequency, syncope, rash, bleeding, or any other signs or symptoms on ROS at this time. He has no past surgical history reported.. Historical: - Allergies: 07:00 PENICILLINS; br2 - Home Meds: 07:00 None [Active]; br2 - PSHx: 07:00 None; br2 - Immunization history:: Adult Immunizations up to date. - Infectious Disease History:: Denies. - Social history:: Smoking status: Patient denies any tobacco usage or history of. Patient uses alcohol, occasionally. Patient/guardian denies using street drugs. ROS: 07:30 Constitutional: Negative for fever, chills, and weight loss, Eyes: Negative for injury, sp3 pain, redness, and discharge, ENT: Negative for injury, pain, and discharge, Neck: Negative for injury, pain, and swelling, Cardiovascular: Negative for chest pain, palpitations, and edema, Respiratory: Negative for shortness of breath, cough, wheezing, and pleuritic chest pain, : Negative for injury, bleeding, discharge, and swelling, MS/Extremity: Negative for injury and deformity, Skin: Negative for injury, rash, and discoloration, Neuro: Negative for headache, weakness, numbness, tingling, and seizure, Psych: Negative for depression, anxiety, suicide ideation, homicidal ideation, and hallucinations, Allergy/Immunology: Negative for hives, rash, and allergies, Endocrine: Negative for neck swelling, polydipsia, polyuria, polyphagia, and marked weight changes, Hematologic/Lymphatic: Negative for swollen nodes, abnormal bleeding, and unusual bruising, 07:30 All other systems are negative, Exam: 07:30 Constitutional: This is a well developed, well nourished patient who is awake, alert, sp3 and in no acute distress. Head/Face: Normocephalic, atraumatic. Eyes: Pupils equal round and reactive to light, extra-ocular motions intact. Lids and lashes normal. Conjunctiva and sclera are non-icteric and not injected. Cornea within normal limits. Periorbital areas with no swelling, redness, or edema. Neck: Trachea midline, no thyromegaly or masses palpated, and no cervical lymphadenopathy. Supple, full range of motion without nuchal rigidity, or vertebral point tenderness. No Meningismus. Chest/axilla: Normal chest wall appearance and motion. Nontender with no deformity. No lesions are appreciated. Cardiovascular: Regular rate and rhythm with a normal S1 and S2. No gallops, murmurs, or rubs. Normal PMI, no JVD. No pulse deficits. Respiratory: Lungs have equal breath sounds bilaterally, clear to auscultation and percussion. No rales, rhonchi or wheezes noted. No increased work of breathing, no retractions or nasal flaring. Skin: Warm, dry with normal turgor. Normal color with no rashes, no lesions, and no evidence of cellulitis. MS/ Extremity: Pulses equal, no cyanosis. Neurovascular intact. Full, normal range of motion. Neuro: Awake and alert, GCS 15, oriented to person, place, time, and situation. Cranial nerves II-XII grossly intact. Motor strength 5/5 in all extremities. Sensory grossly intact. Cerebellar exam normal. Normal gait. Psych: Awake, alert, with orientation to person, place and time. Behavior, mood, and affect are within normal limits. 07:30 Abdomen/GI: Right CVA tenderness noted with extension of right lower quadrant abdominal pain. No peritoneal signs, rebound or guarding noted., Vital Signs: 06:59 BP 155 / 88; Pulse 73; Resp 18; Temp 98.1(TE); Pulse Ox 97% on R/A; Weight 102.06 kg; br2 Height 5 ft. 10 in. ; Pain 8/10; 09:28 BP 156 / 94; Pulse 77; Resp 17 S; Pulse Ox 96% on R/A; Pain 4/10; kc6 06:59 Body Mass Index 32.28 (102.06 kg, 177.8 cm) br2 06:59 Pain Scale: Adult br2 09:28 Pain Scale: Adult kc6 MDM: 07:12 Medical Screening Exam initiated sp3 07:32 Data reviewed: vital signs, nurses notes, lab test result(s), radiologic studies. ED sp3 course: 59-year-old male with right flank and right lower quadrant abdominal pain. Differential diagnosis includes appendicitis, UTI/pyelonephritis spectrum, ureterolithiasis/kidney stone spectrum, musculoskeletal pain, other intra abdominal pathology, among others. I am not highly suspicious of vascular pathology including AAA, sepsis, shock or any other critical process. Workup will include CT scan of abdomen pelvis with IV contrast, general labs, UA and general supportive care with IV fluids and pain medications as needed. Disposition pending workup and patient course.. 08:25 ED course: Patient with 3 mm kidney stone at the right UVJ. Mild hydronephrosis also sp3 present. Creatinine at 1.36 borderline. Given size and location and speed at which it has dropped, I do not believe a stent is currently necessary. Will continue pain control and hydration and discharge patient home on NSAID, tramadol and Flomax with urology follow-up. Urine strainer also given. Will get pain under control prior to discharge with Dilaudid as needed.. 01/23 07:12 Order name: CBC with Diff; Complete Time: 08:14 sp3 01/23 07:12 Order name: CMP; Complete Time: 08:14 sp3 01/23 07:12 Order name: Lipase; Complete Time: 08:14 sp3 01/23 07:12 Order name: UA Rfx Michael Cult if indicated; Complete Time: 09:08 sp3 01/23 07:12 Order name: CT Abd/Pelvis - IV Contrast Only; Complete Time: 08:25 sp3 01/23 07:12 Order name: IV Saline Lock; Complete Time: 07:23 sp3 01/23 07:12 Order name: Labs collected and sent; Complete Time: 07:23 sp3 Administered Medications: 07:24 Drug: TORadol - Ketorolac IVP 15 mg IVP once Route: IVP; Site: left antecubital; ap3 08:16 Follow up: Response: No adverse reaction; Pain is unchanged, physician notified kc6 07:24 Drug: NS 0.9% IV 1000 ml IV at 1 bolus Per protocol; to be given as a bolus over 60 ap3 minutes Route: IV; Rate: 1 bolus; Site: left antecubital; 09:10 Follow up: Response: No adverse reaction; IV Status: Completed infusion; IV Intake: kc6 1000ml 08:16 Drug: HYDROmorphone IVP 1 mg IVP once Route: IVP; Site: left antecubital; kc6 08:40 Follow up: Response: No adverse reaction; Pain is decreased; RASS: Alert and Calm (0) kc6 08:16 Drug: Ondansetron IVP 4 mg IVP once; over 2 minutes Route: IVP; Site: left antecubital; kc6 08:40 Follow up: Response: No adverse reaction; Nausea is decreased; Vomiting decreased kc6 08:56 Drug: HYDROmorphone IVP 1 mg IVP once Route: IVP; Site: left antecubital; kc6 09:10 Follow up: Response: No adverse reaction; Pain is decreased kc6 Disposition Summary: 01/23/25 09:08 Discharge Ordered Notes: Location: Home sp3 Condition: Stable sp3 Diagnosis - Hydronephrosis with renal and ureteral calculous obstruction sp3 Followup: sp3 - With: Luc Proctor MD - When: Upon discharge from the Emergency Department - Reason: Recheck today's complaints Discharge Instructions: - Discharge Summary Sheet sp3 - Kidney Stones sp3 - Dietary Guidelines to Help Prevent Kidney Stones sp3 Forms: - Medication Reconciliation Form sp3 - Antibiotic Education sp3 - Prescription Opioid Use sp3 - Patient Portal Instructions sp3 - Leadership Thank You Letter sp3 - Work release form kc6 Prescriptions: - Flomax 0.4 mg Oral capsule - take 1 capsule ORAL route daily; 5 capsule; Refills: 0, Product Selection sp3 Permitted - Diclofenac Sodium 75 mg Oral Tablet Sustained Release - take 1 tablet ORAL route 2 times per day; 30 tablet; Refills: 0, Product sp3 Selection Permitted - Tramadol 50 mg Oral Tablet - take 1 tablet ORAL route every 8 hours as needed; 12 tablet; Refills: 0, sp3 Product Selection Permitted Signatures: Dispatcher [employer] EDMS Norma Farr RN RN ap3 Roscoe Garcia MD MD sp3 Shaina Perez RN RN kc6 Delmy España RN RN br2 Corrections: (The following items were deleted from the chart) 07: 07:12 CBC+H.LAB.BRZ ordered. EDMS EDMS 07:12 07:12 COMPREHENSIVE METABOLIC PANEL+C.LAB.BRZ ordered. EDMS EDMS 07: 07:12 LIPASE+C.LAB.BRZ ordered. EDMS EDMS 07: 07:12 UA Rfx Michael Cult if indicated+U.LAB.BRZ ordered. EDMS EDMS 07:12 07:12 Abdomen Pelvis W Con+CT.RAD.BRZ ordered. EDMS EDMS
--- NOTE | 2025-01-23 09:09 | ER ---
Nurse's Notes [facility] Name: Radha Bellamy Age: 59 yrs Sex: Male : 1965 Arrival Date: 01/23/2025 Time: 06:45 Bed 19 Private MD: Cosmo Garcia Diagnosis: Hydronephrosis with renal and ureteral calculous obstruction Presentation: 01/23 06:59 Chief complaint: Patient states: PT STATES HE WOKE UP AT 3AM WITH PAIN TO RIGHT FLANK br2 THAT RADIATES TO RLQ, VOMITING. Coronavirus screen: Client denies travel out of the [place] in the last 14 days. Ebola Screen: Patient denies exposure to infectious person. Initial Sepsis Screen: Does the patient meet any 2 criteria? No. Patient's initial sepsis screen is negative. Does the patient have a suspected source of infection? No. Patient's initial sepsis screen is negative. Risk Assessment: Do you want to hurt yourself or someone else? Patient reports no desire to harm self or others. Onset of symptoms was January 23, 2025 at 03:00. 06:59 Method Of Arrival: Ambulatory br2 06:59 Acuity: EH 3 br2 Triage Assessment: 07:00 General: Appears uncomfortable, Behavior is restless. Pain: Complains of pain in right br2 low back Pain radiates to right lower quadrant Pain currently is 8 out of 10 on a pain scale. Quality of pain is described as aching. GI: Reports lower abdominal pain, nausea. Historical: - Allergies: 07:00 PENICILLINS; br2 - Home Meds: 07:00 None [Active]; br2 - PSHx: 07:00 None; br2 - Immunization history:: Adult Immunizations up to date. - Infectious Disease History:: Denies. - Social history:: Smoking status: Patient denies any tobacco usage or history of. Patient uses alcohol, occasionally. Patient/guardian denies using street drugs. Screenin:25 [facility] ED Fall Risk Assessment (Adult) History of falling in the last 3 months, ap3 including since admission No falls in past 3 months (0 pts) Confusion or Disorientation No (0 pts) Intoxicated or Sedated No (0 pts) Impaired Gait No (0 pts) Mobility Assist Device Used No (0 pt) Altered Elimination No (0 pt) Score/Fall Risk Level 0 - 2 = Low Risk Oriented to surroundings, Maintained a safe environment, Educated pt \T\ family on fall prevention, incl call for assistance when getting out of bed, Assessed \T\ reinforced patient's understanding of fall precautions, Hourly rounding (assess needs \T\ fall precautionary measures) done, Used ambulatory aids as needed (educated on \T\ assisted with). Abuse screen: Denies threats or abuse. Nutritional screening: No deficits noted. Tuberculosis screening: No symptoms or risk factors identified. Assessment: 07:24 General: Appears uncomfortable, Behavior is cooperative, appropriate for age. Pain: ap3 Complains of pain in right lower quadrant and back and right low back Pain currently is 3 out of 10 on a pain scale. Neuro: Level of Consciousness is awake, alert, obeys commands, Oriented to person, place, time, situation, Appropriate for age. Cardiovascular: Patient's skin is warm and dry. Respiratory: Airway is patent. GI: Abdomen is non-distended, Reports lower abdominal pain, nausea, vomiting. 08:05 General: Appears in no apparent distress. uncomfortable, well groomed, well developed, kc6 Behavior is cooperative, appropriate for age, restless. Neuro: Level of Consciousness is awake, alert, obeys commands, Oriented to person, place, time, situation, Appropriate for age. Cardiovascular: Capillary refill < 3 seconds. Respiratory: Airway is patent Trachea midline Respiratory effort is even, unlabored, Respiratory pattern is regular, symmetrical. GI: Abdomen is round non-distended, Pt is actively vomiting clear fluid, Reports lower abdominal pain, nausea, vomiting, Patient currently denies diarrhea. : Reports pain flank(s), in lower back. EENT: No signs and/or symptoms were reported regarding the EENT system. Derm: No signs and/or symptoms reported regarding the dermatologic system. Skin is intact, is healthy with good turgor, Skin is pink, warm \T\ dry. Musculoskeletal: No signs and/or symptoms reported regarding the musculoskeletal system. Circulation, motion, and sensation intact. Range of motion: intact in all extremities. 09:28 Reassessment: Patient appears in no apparent distress at this time. No changes from kc6 previously documented assessment. Patient and/or family updated on plan of care and expected duration. Pain level reassessed. Patient is alert, oriented x 3, equal unlabored respirations, skin warm/dry/pink. Patient states feeling better. Patient states symptoms have improved. Vital Signs: 06:59 BP 155 / 88; Pulse 73; Resp 18; Temp 98.1(TE); Pulse Ox 97% on R/A; Weight 102.06 kg; br2 Height 5 ft. 10 in. ; Pain 8/10; 09:28 BP 156 / 94; Pulse 77; Resp 17 S; Pulse Ox 96% on R/A; Pain 4/10; kc6 06:59 Body Mass Index 32.28 (102.06 kg, 177.8 cm) br2 06:59 Pain Scale: Adult br2 09:28 Pain Scale: Adult kc6 ED Course: 06:48 Patient arrived in ED. gm2 06:49 Cosmo Garcia DO is Private Physician. gm2 07:00 Triage completed. br2 07:00 Arm band placed on right wrist. br2 07:08 Initial lab(s) drawn, by me, sent to lab. Inserted saline lock: 20 gauge in left rk3 antecubital area, using aseptic technique. Blood collected. Flushed with 10 mL NS. 07:11 Roscoe Garcia MD is Attending Physician. sp3 07:33 CT Abd/Pelvis - IV Contrast Only In Process Unspecified. EDMS 08:00 Patient has correct armband on for positive identification. Bed in low position. Call kc6 light in reach. Side rails up X 1. Adult w/ patient. Pulse ox on. NIBP on. Door closed. Noise minimized. Lights dimmed. Warm blanket given. Pillow given. Verbal reassurance given. 08:00 Report received from JOHN Green. kc6 08:00 Patient maintains SpO2 saturation greater than 95% on room air. kc6 08:15 Shaina Perez, JONH is Primary Nurse. kc6 08:56 Urine collected: clean catch specimen, clear. kc6 09:08 uLc Proctor MD is Referral Physician. sp3 09:28 No provider procedures requiring assistance completed. IV discontinued, intact, kc6 bleeding controlled, No redness/swelling at site. Pressure dressing applied. Administered Medications: 07:24 Drug: TORadol - Ketorolac IVP 15 mg IVP once Route: IVP; Site: left antecubital; ap3 08:16 Follow up: Response: No adverse reaction; Pain is unchanged, physician notified kc6 07:24 Drug: NS 0.9% IV 1000 ml IV at 1 bolus Per protocol; to be given as a bolus over 60 ap3 minutes Route: IV; Rate: 1 bolus; Site: left antecubital; 09:10 Follow up: Response: No adverse reaction; IV Status: Completed infusion; IV Intake: kc6 1000ml 08:16 Drug: HYDROmorphone IVP 1 mg IVP once Route: IVP; Site: left antecubital; kc6 08:40 Follow up: Response: No adverse reaction; Pain is decreased; RASS: Alert and Calm (0) kc6 08:16 Drug: Ondansetron IVP 4 mg IVP once; over 2 minutes Route: IVP; Site: left antecubital; kc6 08:40 Follow up: Response: No adverse reaction; Nausea is decreased; Vomiting decreased kc6 08:56 Drug: HYDROmorphone IVP 1 mg IVP once Route: IVP; Site: left antecubital; kc6 09:10 Follow up: Response: No adverse reaction; Pain is decreased kc6 Medication: 09:29 VIS not applicable for this client. kc6 Intake: 09:10 IV: 1000ml; Total: 1000ml. kc6 Outcome: 09:08 Discharge ordered by . sp3 09:28 Discharged to home ambulatory, with significant other, kc6 09:28 Condition: improved 09:28 Discharge instructions given to patient, significant other, Instructed on discharge instructions, follow up and referral plans. no drinking with medication, no driving heavy equipment, medication usage, Demonstrated understanding of instructions, follow-up care, medications, Prescriptions given X 3, 09:29 Patient left the ED. kc6 Signatures: Dispatcher [employer] EDMS Norma Farr RN RN ap3 Roscoe Garcia MD MD sp3 Shaina Perez RN RN kc6 Samantha Coronado 2 Delmy España RN RN br2 Trung Mora rk3
[2025-01-23 09:51] VITALS: BP 155/88; TEMP 98.1; O2SAT 97
== END 2025-01-23 09:29 | disposition home or self-care (01) ==
LOC: ER 06:45
DX: N13.2 Hydronephrosis with renal and ureteral calculous obstruction (principal); Z88.0 Allergy status to penicillin
CPT/HCPCS: 96361; 85025; 81001; 36415; 83690; 80053; 74177; 96375; 96374; 99284; Q9967; J1171 ×2; J2405; J7030